=== PATIENT | male | born 1955 | race Caucasian/White ===

== ENCOUNTER 2021-07-31 08:26 | Outpatient (CLI) | payer MEDICARE ==
[2021-07-31] VITALS (14 sets, daily range): BP systolic 84–107; BP diastolic 55–69
[~2021-07-31] VITALS: Ht 172.7 cm; Wt 75.0 kg
[~2021-07-31 08:26] MED LIST: ASPI325T8 PO; ATOR40TA59 PO; CLOP75TA PO; FURO40TA4 PO; LISI2.5T12 PO; METO-239 PO; NITR0.4T24 SL
[2021-07-31] MEDS ORDERED: PRAS10TA9 PO (08:42)
[2021-07-31 09:05] LABS: HEMOGLOBIN 14.6 g/dL (13.0-17.5); RED BLOOD COUNT 4.72 x10^6/uL (4.30-5.70); RED CELL DISTRIBUTION WIDTH 14.4 % (11.5-14.5)
[2021-07-31 09:14] LABS: CALCIUM 8.9 mg/dL (8.5-10.1); CREATININE 1.2 mg/dL (0.7-1.3); GFR 60.4; POTASSIUM 4.5 mmol/L (3.5-5.1)
[2021-07-31] MEDS ORDERED: LIDOCAINE 1% PF 2 ML VIAL. ONE ×2 (09:53→09:55)
[2021-07-31] MEDS ORDERED: HEPARIN for ARTERIAL LINE 0 ML ONE (09:53)
[2021-07-31] MEDS ORDERED: IODIXANOL 320 MG/ML 100 ML VIAL. ONE ×2 (09:53→09:55)
[2021-07-31] MEDS ORDERED: fentaNYL PF VIAL 100 MCG/2 ML VIAL ONE (09:59)
[2021-07-31] MEDS ORDERED: HEPARIN for IV BOLUS 10,000 UNIT/10 ML VIAL. ONE (10:00)
[2021-07-31] MEDS ORDERED: NITROGLYCERIN 200 MCG/2 ML SYRINGE FOR CATH/VASC LAB. ONE (10:00)
[2021-07-31] MEDS ORDERED: MIDAZOLAM HCL/PF 5 MG/5 ML VIAL. ONE (10:00)
[2021-07-31] MEDS ORDERED: VERAPAMIL 5 MG/2 ML VIAL. ONE (10:00)
[2021-07-31] MEDS ORDERED: BIVALIRUDIN 250 MG VIAL. IV ONE ×2 (10:15→10:45)
--- NOTE | 2021-07-31 10:38 | PDOC ---
MODERATE SEDATION ASSESSMENT RISKS/ALTERNATIVES Risks/Alternatives Risks and alternatives of this type of sedation and procedure discussed with: RISK/ALTERNATIVES: Patient H & P ON CHART H & P H & P on chart and reviewed for co-morbid conditions and appropriate labs. H&P ON CHART: Yes STATUS PREG STATUS ASSESSED: N/A MEDS/ALLERGIES REVIEWED Meds/Allergies Reviewed Medications and Allergies including time and route of recently administered narcotics and sedatives. MEDS/ALLERGIES REVIEWED: Yes ASA RATING ASA RATING: II AIRWAY ASSESSMENT Airway Assessment Airway patency, oral function limitations, presence of caps, crowns, dentures, partials, and ability to extend neck assessed. AIRWAY ASSESSMENT: Yes MALLAMPATI SCORE MALLAMPATI SCORE: II PRE-SEDATION ASSESSMENT PRE-SEDATION ASSESSMENT: Yes BELTRAN FLYNN MD Jul 31, 2021 10:38
[2021-07-31] MEDS ORDERED: LIDOCAINE 1% PF 2 ML VIAL. INJ ONE (10:45)
[2021-07-31] MEDS ORDERED: MIDAZOLAM HCL/PF 5 MG/5 ML VIAL. IV ONE (10:45)
[2021-07-31] MEDS ORDERED: VERAPAMIL 5 MG/2 ML VIAL. IART ONE (10:45)
[2021-07-31] MEDS ORDERED: HEPARIN for IV BOLUS 10,000 UNIT/10 ML VIAL. IART ONE (10:45)
[2021-07-31] MEDS ORDERED: NITROGLYCERIN 200 MCG/2 ML SYRINGE FOR CATH/VASC LAB. IART ONE (10:45)
[2021-07-31] MEDS ORDERED: fentaNYL PF VIAL 100 MCG/2 ML VIAL IV ONE (10:45)
[2021-07-31] MEDS ORDERED: IODIXANOL 320 MG/ML 100 ML VIAL. IART ONE (10:45)
[2021-07-31] MEDS ORDERED: ACETAMINOPHEN 325 MG TABLET. PO PRN (10:45)
[2021-07-31] MEDS ORDERED: NITROGLYCERIN SUBLINGUAL 0.4 MG BOTTLE OF 25. SL PRN (10:45)
[2021-07-31] MEDS ORDERED: IV 1/2 NORMAL SALINE 1,000 ML IV SCH (10:45)
[2021-07-31] MEDS ORDERED: CONTRAST GIVEN. MC PRN (10:45)
--- NOTE | 2021-07-31 10:55 | CARD ---
MR#: [id number] Date of Study: 07/31/2021 Ordering Physician: BELTRAN PINEDA, Referring Physician: BELTRAN PINEDA, Tech: RT Lisa(R)() APPROVED REPORT Technologist: RT Lisa(R)() Nurse: Edwina Valencia RN Procedure(s) performed: Left coronary angiography and successful PCI/drug-eluting stent placement to the ramus intermedius artery FL TIME: 4.7 MINS DOSE: 35 GYCM2 CONTRAST: 53 ML MODERATE SEDATION: 31 MINS INDICATION The indication(s) include : 65-year-old male recently underwent PCI/ALEXSANDER to left anterior descending a rtery in the setting of late presentation STEMI on 07/02/2021. He was found to have left ventricular sy stolic dysfunction with ejection fraction 30%. He presented today for staged PCI/ALEXSANDER to ramus interme dius artery.. [facility] Clinical Frailty Scale [facility] Clinical Frailty Scale: Moderately Frail Heart Failure Heart Failure: Yes If Yes, Newly Diagnosed: No If Yes, HF Type: Systolic If Yes, NYHA Class: Class II CASE TECHNIQUE IV conscious sedation was used throughout procedure with appropriate monitoring and was performed in the presence of a registered nurse who was an independent trained observer other than the physician p erforming the procedure. During this case, Fluoroscopy and low osmolar contrast were used for imaging . Specimen(s) Removed: No Estimated Blood loss: 15 cc's. PROCEDURE NARRATIVE After explaining the risk, benefits and alternative options, informed consent was obtained from patie nt. Patient was brought to the cardiac Belt Worker and his right wrist was prepped and draped in the us ual fashion after confirming a positive modified Silver's test. Arterial access was obtained in the r ight radial artery and 6 Ecuadorean sheath was inserted. 6 Ecuadorean XB 3.5 guide catheter was advanced und er fluoroscopy guidance, the left main coronary artery engage and selective angiography was performed . This confirmed the previously described 80% stenosis involving the proximal segment of a large lien iber ramus intermedius artery. The recently placed stent in the proximal and mid segment of the left anterior descending artery was patent. Just distal to the stent, there was 40% stenosis in LAD, unc hanged from prior cardiac catheterization. The stenosis in the ramus intermedius artery was crossed with a 0.014 inch [employer] guidewire. This was predilated with a 2.5 x 15 mm Euphora balloon following which this was successfully treated with a 3.5 x 15 mm resolute Ahmet drug-eluting stent. Follow-up angiography showed resolution of the stenosis to 0% with JW-3 distal flow. Patient tolerated the procedure well. Hemostasis was achie [place] using TR band. There were no immediate complications. JW Flow JW Flow (Pre-Intervention): JW-2 JW Flow (Post-Intervention): JW-3 Conclusion Successful PCI/drug-eluting stent placement to the ramus intermedius artery. The recently placed annelise nt in the left anterior descending artery was patent. Recommendations 1. Aspirin 325 mg daily for 1 month followed by 81 mg daily 2. Prasugrel 10 mg daily 3. Cardiovascular risk factor modification 4. Optimize treatment for ischemic cardiomyopathy and repeat 2D echo in 3 months to evaluate the nee d for AICD implantation. Signed by : Beltran Pineda, Electronically Approved : 07/31/2021 10:55:19
--- NOTE | 2021-07-31 14:30 | NUR ---
1415 pt up to walk after completing post cath recovery, pt steady on feet, no c/o. 1420 BP retaken after walking to BR and is 92/ 56. Pt sitting on side of bed. BP retaken after 10 minutes and 87/58. Will recheck in 15 minutes.
--- NOTE | 2021-07-31 14:46 | NUR ---
BP 98/63. PIV dc'd. TR band removed and armboard reapplied. Discharge instructions reviewed with pt and significant other. Pt ambulated and tolerated PO. Pt home in private vehicle.
[2021-08-01] MEDS ORDERED: PRASUGREL 10 MG TABLET. PO SCH (08:00)
[2021-08-01] MEDS ORDERED: ASPIRIN ENTERIC COATED 325 MG TABLET.DR. PO SCH (08:00)
== END 2021-07-31 15:00 | disposition home or self-care (01) ==
LOC: CCL 08:26
PROVIDERS: ATTEND Internal Medicine Cardiovascular Disease
DX: I25.10 Atherosclerotic heart disease of native coronary artery without angina pectoris (principal); E78.00 Pure hypercholesterolemia, unspecified; I25.2 Old myocardial infarction; I42.9 Cardiomyopathy, unspecified; J44.9 Chronic obstructive pulmonary disease, unspecified; Z87.891 Personal history of nicotine dependence; Z95.5 Presence of coronary angioplasty implant and graft; Z98.890 Other specified postprocedural states
CPT/HCPCS: 36415; 80048; 85027; 99152; 99153; C1725; C1769; C1874; C1887; C1894; C9600; J0583; J1644; J2250; J3010; J3490; Q9967; 92928

== ENCOUNTER → 2022-03-22 | Outpatient (CLI) | payer BC ==
[2021-07-31 14:30] VITALS: BP 87/58
[~2022-03-22] MED LIST changes: +PRAS10TA9 PO
--- NOTE | 2022-03-22 17:12 | CARD ---
MR#: [id number] Date of Study: 03/22/2022 Ordering Physician: BELTRAN FLYNN, Referring Physician: BELTRAN FLYNN Tech: Yessenia Rucker ALESHIA APPROVED REPORT EXAM: Two-dimensional and M-mode echocardiogram with Doppler and color Doppler. Other Information Quality : Technically LimitedHR: 73bpm Rhythm : NSR INDICATION Cardiac Disease: CAD RISK FACTORS Hypertension Hyperlipidemia Smoking 2D DIMENSIONS RVDd3.4 (2.9-3.5cm)Left Atrium(2D)4.2 (1.6-4.0cm) IVSd0.7 (0.7-1.1cm)Aortic Root(2D)3.1 (2.0-3.7cm) LVDd5.8 (3.9-5.9cm)LVOT Diameter2.2 (1.8-2.4cm) PWd0.9 (0.7-1.1cm)IVSs1.0 (0.8-1.2cm) LVDs5.4 (2.5-4.0cm)FS (%) 6.8 % PWs1.1 (0.8-1.2cm)SV24.4 ml LVEF(%)14.9 (>50%) Aortic Valve AoV Peak Adelso.99.5cm/sAoV VTI19.3cm AO Peak GR.4.0mmHgLVOT Peak Adelso.90.0cm/s LVOT VTI 16.85cmAO Mean GR.2mmHg JT (VMAX)2.18xz4SVP (VTI)3.20cm2 Mitral Valve MV E Tqjqqlzy08.5cm/sMV DECEL OUTK249py MV A Edqajigm48.4cm/sMV [id number] E/A Ratio2.1MVA (PHT)4.76cm2 TDI E/Lateral E'9.6E/Medial E'11.7 Pulmonary Valve PV Peak Sxaddsqp60.3cm/sPV Peak Grad.3mmHg LEFT VENTRICLE The left ventricle is normal size. There is normal left ventricular wall thickness. Moderate global l eft ventricular systolic dysfunction. Severe hypokinesis of mid to distal anterior and anteroseptal w alls and the entire apical wall. The ejection fraction is estimated at 20 to 25% Tissue Doppler imagi ng reveals moderate left ventricular diastolic dysfunction. RIGHT VENTRICLE The right ventricle is normal size. There is normal right ventricular wall thickness. The right ventr icular systolic function is normal. ATRIA The left atrium size is normal. The right atrium size is normal. The interatrial septum is intact wit h no evidence for an atrial septal defect or patent foramen ovale as noted on 2-D or Doppler imaging. AORTIC VALVE The aortic valve is normal in structure and function. Doppler and Color Flow revealed no significant aortic regurgitation. There is no significant aortic valvular stenosis. MITRAL VALVE The mitral valve is normal in structure and function. There is no evidence of mitral valve prolapse. There is no mitral valve stenosis. Doppler and Color-flow revealed mild mitral regurgitation. TRICUSPID VALVE The tricuspid valve is normal in structure and function. Doppler and Color Flow revealed no tricuspid valve regurgitation noted. There is no tricuspid valve stenosis. PULMONIC VALVE The pulmonary valve is normal in structure and function. Doppler and Color Flow revealed no pulmonic valvular regurgitation. GREAT VESSELS The aortic root is normal in size. The ascending aorta is normal in size. The IVC is normal in size a nd collapses >50% with inspiration. PERICARDIAL EFFUSION There is no evidence of significant pericardial effusion. Critical Notification Critical Value: No <Conclusion> Moderate global left ventricular systolic dysfunction. Severe hypokinesis of mid to distal anterior and anteroseptal valle and the entire apical wall. The ejection fraction is estimated at 20 to 25% Tissue Doppler imaging reveals moderate left ventricular diastolic dysfunction. Mild mitral regurgitation. There is no evidence of significant pericardial effusion. Signed by : Beltran Flynn, Electronically Approved : 03/22/2022 17:11:42
== END ==
LOC: ECHO 09:27
PROVIDERS: ATTEND Internal Medicine Cardiovascular Disease
DX: I34.0 Nonrheumatic mitral (valve) insufficiency (principal); I51.9 Heart disease, unspecified; I42.9 Cardiomyopathy, unspecified
CPT/HCPCS: 93306; C8929

== ENCOUNTER 2022-04-07 07:27 | Emergency (ER) | payer BC ==
[~2022-04-07] VITALS: Ht 172.7 cm; Wt 77.0 kg
[2022-04-07] MEDS ORDERED: IPRATRPIUM/ALBUTEROL 0.5/2.5MG 3 ML NEBU. NEB ONE (08:00)
[2022-04-07 08:09] LABS: CALCIUM 8.7 mg/dL (8.5-10.1); CREATININE 1.4 mg/dL (0.7-1.3); GFR 50.4; POTASSIUM 4.7 mmol/L (3.5-5.1)
[2022-04-07 08:15] LABS: ALBUMIN 3.8 g/dL (3.4-5.0); TOTAL PROTEIN 7.8 g/dL (6.4-8.2)
--- NOTE | 2022-04-07 08:24 | RAD ---
Study: XR CHEST 1V Indication: Shortness of breath. Comparison: 07/05/2021 Findings: The cardiomediastinal silhouette is within normal limits for size. Similar hilar configuration. Aorti c calcific atherosclerosis. Pleural-based opacification along the mid left lung with adjacent rib fractures, best seen to involve the fifth and sixth ribs, which do not appear acute though not definitively seen previously. Similar aeration pattern of the lungs elsewhere. No pleural effusion or pneumothorax. Hyperexpanded lungs, i nterstitial prominence and paraseptal cystic change at the apices typical of emphysema. Impression: Pleural-based opacity at the mid left lung with overlying rib fracture deformities which do not appea r acute however were not seen previously. Correlate for recent trauma. No pneumothorax or pleural eff usion. Emphysematous changes. Electronically signed by: VIKAS ARREGUIN MD (04/07/2022 8:22 AM) [facility]
[2022-04-07 08:27] LABS: BASO % 1 % (0-3); EOS % 0 % (0-3); HEMATOCRIT 50.4 % (39.0-53.0); HEMOGLOBIN 17.3 g/dL (13.0-17.5); LYMPH # 1.9 x10^3/uL (1.0-4.8); LYMPH % 32 % (24-48); MEAN CORPUSCULAR HEMOGLOBIN 30 pg (25-35); MEAN CORPUSCULAR HGB CONC 34 g/dL (31-37); MEAN CORPUSCULAR VOLUME 87 fL (79-100); MONO % 16 % (0-9); NEUT % 51 % (31-73); PLATELET COUNT 105 x10^3/uL (140-400); RED BLOOD COUNT 5.82 x10^6/uL (4.30-5.70); RED CELL DISTRIBUTION WIDTH 15.6 % (11.5-14.5)
[2022-04-07 08:36] LABS: INFLUENZA A PATIENT NEGATIVE (NEGATIVE); INFLUENZA B PATIENT NEGATIVE (NEGATIVE)
[2022-04-07] MEDS ORDERED: methylPREDNISolone SOD SUCC PF 40 MG/ML VIAL. IV ONE (09:00)
[2022-04-07 09:02] LABS: BACTERIA,URINE FEW /HPF (0-FEW); WBC,URINE OCC /HPF (0-4)
[2022-04-07 09:30] VITALS: BP 109/59
[2022-04-07] MEDS ORDERED: PRED20TA PO (09:43)
[2022-04-07] MEDS ORDERED: ALBU2.5V8 INH (09:43)
--- NOTE | 2022-04-07 15:23 | PHYS DOC ---
Past Medical History Past Surgical History: No Surgical History Additional Past Surgical Histo: R wrist fx Smoking Status: Current Every Day Smoker Alcohol Use: None General Adult EDM: Chief Complaint: SHORTNESS OF BREATH HPI: HPI: Patient is a 66 year old male with long history of tobacco use who presents with shortness of breath for the last 3 days. Patient states that he has been coughing and feeling tightness in his chest. He states that he has smoked for a long time. He has been hearing wheezes when he breathes. He reports no other symptoms. He has not been formally diagnosed with COPD. Patient reports no chest pain. Review of Systems: Review of Systems: Constitutional: Denies fever or chills. [] Eyes: Denies change in visual acuity. [] HENT: Denies nasal congestion or sore throat. [] Respiratory: Positive cough and shortness of breath. [] Cardiovascular: Denies chest pain or edema. [] GI: Denies abdominal pain, nausea, vomiting, bloody stools or diarrhea. [] : Denies dysuria. [] Musculoskeletal: Denies back pain or joint pain. [] Integument: Denies rash. [] Neurologic: Denies headache, focal weakness or sensory changes. [] Endocrine: Denies polyuria or polydipsia. [] Lymphatic: Denies swollen glands. [] Psychiatric: Denies depression or anxiety. [] Heart Score: C/O Chest Pain: No Risk Factors: Risk Factors: DM, Current or recent (<one month) smoker, HTN, HLP, family history of CAD, obesity. Risk Scores: Score 0 - 3: 2.5% MACE over next 6 weeks - Discharge Home Score 4 - 6: 20.3% MACE over next 6 weeks - Admit for Clinical Observation Score 7 - 10: 72.7% MACE over next 6 weeks - Early Invasive Strategies Current Medications: Current Medications Medications (Trade) Dose Ordered Sig/Martha Start Time Stop Time Status Last Admin Dose Admin Albuterol/ Ipratropium (Duoneb) 3 ml 1X ONCE 04/07/22 08:00 04/07/22 08:01 DC 04/07/22 08:09 3 ML Methylprednisolone Sodium Succinate (SOLU-Medrol 40MG VIAL) 60 mg 1X ONCE 04/07/22 09:00 04/07/22 09:01 DC 04/07/22 09:00 60 MG Allergies: Allergies: Allergies Coded Allergies Type Severity Reaction Last Updated Verified Iodinated Contrast Media Allergy Intermediate Hives 04/07/22 Yes clopidogrel Allergy Intermediate rash 07/31/21 Yes Sulfa (Sulfonamide Antibiotics) Allergy Unknown 07/02/21 Yes Physical Exam: PE: Constitutional: Well developed, well nourished, no acute distress, non-toxic appearance. [] HENT: Normocephalic, atraumatic, bilateral external ears normal, oropharynx moist, no oral exudates, nose normal. [] Eyes: PERRLA, EOMI, conjunctiva normal, no discharge. [] Neck: Normal range of motion, no tenderness, supple, no stridor. [] Cardiovascular:Heart rate regular rhythm, no murmur [] Lungs & Thorax: Bilateral wheezes on auscultation, no increased work of breathing, no tachypnea [] Abdomen: Bowel sounds normal, soft, no tenderness, no masses, no pulsatile masses. [] Skin: Warm, dry, no erythema, no rash. [] Back: No tenderness, no CVA tenderness. [] Extremities: No tenderness, no cyanosis, no clubbing, ROM intact, no edema. [] Neurologic: Alert and oriented X 3, normal motor function, normal sensory function, no focal deficits noted. [] Psychologic: Affect normal, judgement normal, mood normal. [] Current Patient Data: Labs: Laboratory Tests Test 04/07/22 07:40 04/07/22 08:03 04/07/22 08:20 White Blood Count 6.0 x10^3/uL (4.0-11.0) Red Blood Count 5.82 x10^6/uL (4.30-5.70) H Hemoglobin 17.3 g/dL (13.0-17.5) Hematocrit 50.4 % (39.0-53.0) Mean Corpuscular Volume 87 fL (79-100) Mean Corpuscular Hemoglobin 30 pg (25-35) Mean Corpuscular Hemoglobin Concent 34 g/dL (31-37) Red Cell Distribution Width 15.6 % (11.5-14.5) H Platelet Count 105 x10^3/uL (140-400) L Neutrophils (%) (Auto) 51 % (31-73) Lymphocytes (%) (Auto) 32 % (24-48) Monocytes (%) (Auto) 16 % (0-9) H Eosinophils (%) (Auto) 0 % (0-3) Basophils (%) (Auto) 1 % (0-3) Neutrophils # (Auto) 3.0 x10^3/uL (1.8-7.7) Lymphocytes # (Auto) 1.9 x10^3/uL (1.0-4.8) Monocytes # (Auto) 1.0 x10^3/uL (0.0-1.1) Eosinophils # (Auto) 0.0 x10^3/uL (0.0-0.7) Basophils # (Auto) 0.0 x10^3/uL (0.0-0.2) Sodium Level 138 mmol/L (136-145) Potassium Level 4.7 mmol/L (3.5-5.1) Chloride Level 100 mmol/L (98-107) Carbon Dioxide Level 27 mmol/L (21-32) Anion Gap 11 (6-14) Blood Urea Nitrogen 18 mg/dL (8-26) Creatinine 1.4 mg/dL (0.7-1.3) H Estimated GFR (Cockcroft-Gault) 50.4 BUN/Creatinine Ratio 13 (6-20) Glucose Level 102 mg/dL (70-99) H Calcium Level 8.7 mg/dL (8.5-10.1) Total Bilirubin 1.0 mg/dL (0.2-1.0) Aspartate Amino Transferase (AST) 31 U/L (15-37) Alanine Aminotransferase (ALT) 32 U/L (16-63) Alkaline Phosphatase 114 U/L (46-116) Troponin I High Sensitivity 19 ng/L (4-75) YS-Btz-B-Type Natriuretic Peptide 642 pg/mL (0-124) H Total Protein 7.8 g/dL (6.4-8.2) Albumin 3.8 g/dL (3.4-5.0) Albumin/Globulin Ratio 1.0 (1.0-1.7) Procalcitonin < 0.10 ng/mL (0.00-0.10) Influenza Type A Antigen Negative (NEGATIVE) Influenza Type B Antigen Negative (NEGATIVE) SARS-CoV-2 Antigen (Rapid) Negative (NEGATIVE) Urine Collection Type Void Urine Color (Auto) Yellow Urine Turbidity Clear Urine pH (Auto) 5.5 (<5.0-8.0) Urine Specific [place] 1.026 (1.000-1.030) Urine Protein (Auto) Negative mg/dL (Negative) Urine Glucose (Auto)(UA) Negative mg/dL (Negative) Urine Ketones (Auto) Negative mg/dL (Negative) Urine Blood (Auto) Moderate (Negative) Urine Nitrite (Auto) Negative (Negative) Urine Bilirubin (Auto) Negative (Negative) Urine Urobilinogen (Auto) Normal mg/dL (Normal) Urine Leukocyte Esterase (Auto) Negative (Negative) Urine RBC 6-10 /HPF (0-2) Urine WBC Occ /HPF (0-4) Urine Squamous Epithelial Cells Few /LPF Urine Bacteria Few /HPF (0-FEW) Urine Mucus Mod /LPF Laboratory Tests 04/07/22 07:40 Laboratory Tests 04/07/22 07:40 Vital Signs: Vital Signs Date Time Temp Pulse Resp B/P (MAP) Pulse Ox O2 Delivery O2 Flow Rate FiO2 04/07/22 09:30 86 28 109/59 (76) 93 Room Air 04/07/22 07:29 98.6 98.6 EKG: EKG: Sinus rhythm [] Radiology/Procedures: Radiology/Procedures: Emphysematous changes noted [] Impression: New onset COPD with exacerbation Course & Med Decision Making: Course & Med Decision Making Pertinent Labs and Imaging studies reviewed. (See chart for details) Seen and evaluated by myself, bilateral wheezes noted. DuoNeb administered to patient. Labs drawn. Reviewed labs with patient as well as radiological findings of chest x-ray with emphysematous changes. No pneumonia or increased fluid volume noted. Patient reported much improvement after DuoNeb administration. Patient states that he does not have albuterol or prednisone at home. Patient given prescription for albuterol as well as prednisone to take for the next week. Patient has good follow-up with his primary care physician, he stated he would follow-up with his primary care physician for reevaluation within the next week. Patient stated that he felt much better and at baseline after administration of DuoNeb. Patient did not require oxygen while he was in the emergency department. Patient discharged in stable condition. All questions answered, patient comfortable with the plan of action. Patient given emergency department precautions for return if worsening or new symptoms. Dragon Disclaimer: Dragon Disclaimer: This electronic medical record was generated, in whole or in part, using a voice recognition dictation system. Departure Departure Impression: Primary Impression: COPD exacerbation Disposition: HOME / SELF CARE / HOMELESS Condition: GOOD Patient Instructions: Acute Bronchitis, [id number] Additional Instructions: Follow-up with your primary care physician in 1 week Use your albuterol inhaler every 6 hours for the next 1 to 2 days Finish the prescription of prednisone Try to quit smoking or at least reduce the amount of tobacco you are taking Scripts Albuterol Sulfate (PROAIR HFA INHALER) 8.5 Gm Hfa.aer.ad 1 PUFF INH Q6-8HRS PRN for SHORTNESS OF BREATH, #1 INHALER 0 Refills Prov: JARON KAUFFMAN MD 04/07/22 Prednisone (PREDNISONE) 20 Mg Tablet 3 TAB PO DAILY for 7 Days, #21 TAB Prov: JARON KAUFFMAN MD 04/07/22 JARON KAUFFMAN MD April 07, 2022 15:23
--- NOTE | 2022-04-07 19:41 | EKG ---
[facility] [address] [place] [address] Test Date: 2022-04-07 Test Time: 07:36:28 Pat Name: MEDARDO ROSS Department: Room: Gender: M Stitcher Operator: : 1955 Requested By: JARON Laws Number: [id number] Reading MD: Jose Pineda Measurements Intervals [place] Rate: 86 P: 31 PA: 138 QRS: -63 QRSD: 102 T: 103 QT: 356 QTc: 429 Interpretive Statements SINUS RHYTHM ABNORMAL LEFT AXIS DEVIATION LEFT ANTERIOR FASCICULAR BLOCK LVH WITH REPOLARIZATION ABNORMALITY ABNORMAL ECG Electronically Signed On 04-09-2022 14:53:15 CDT by Jose Pineda
== END 2022-04-07 09:57 | disposition home or self-care (01) ==
LOC: ER 07:27
DX: J44.1 Chronic obstructive pulmonary disease with (acute) exacerbation (principal); Z20.822 Contact with and (suspected) exposure to COVID-19; F17.200 Nicotine dependence, unspecified, uncomplicated; Z88.2 Allergy status to sulfonamides; Z91.041 Radiographic dye allergy status; Z88.8 Allergy status to other drugs, medicaments and biological substances
CPT/HCPCS: 36415; 71045; 80053; 81001; 83880; 84145; 84484; 85025; 87428; 93005; 96374; 99285; J2920